=== PATIENT | male | born 1935 | race Caucasian/White ===

== ENCOUNTER 2017-06-29 22:14 | Inpatient (IN) | payer MEDICARE, BC ==
[2017-06-29 23:07] LABS: Bilirubin Negative (Negative); Blood, Urine Negative (Negative); Glucose, Urine (Dipstick) Negative (Negative); Ketone, Urine Negative (Negative); Nitrite Positive (Negative); Protein, Urine (Dipstick) 30 mg/dL (Neg-Trace)
[2017-06-29 23:10] LABS: Bacteria/HPF 4+ HPF (None Seen); Squamous Epithelial 0-3 HPF (0-3)
--- NOTE | 2017-06-29 23:12 | RAD ---
CHEST ONE VIEW 06/29/17 HISTORY: Emergency exam. COMPARISON: Chest one view 02/13/17. FINDINGS: The interstitial opacities seen on the prior examination have improved. Chronic scarring in the lung bases. No pneumothorax or effusion. Cardiac silhouette and mediastinal contours are within normal sotelo its given technique. IMPRESSION: No acute intrathoracic abnormality. POS: [facility]
[2017-06-29 23:13] LABS: #Lymphocytes 0.9 thou/uL (1.20-3.40); #Monocytes 0.3 thou/uL (0.11-0.59); #Neutrophils 7.4 thou/uL (1.40-6.50); %Basophils 0.3 % (0.0-1.0); %Eosinophils 0.2 % (0.0-10.0); %Lymphocytes 10.8 % (21.0-51.0); %Monocytes 3.5 % (0.0-10.0); Hematocrit 31.1 % (42.0-52.0); Mean Platelet Volume 6.6 fL (7.4-10.4); Red Blood Cell (RBC) Count 3.35 mill/uL (4.70-6.10); White Blood Cell (WBC) Count 8.7 thou/uL (4.8-10.8)
[2017-06-29 23:19] LABS: Lactic Acid - Sepsis 2.3 mmol/L (0.5-2.2)
[2017-06-29 23:24] LABS: ALT (SGPT) 8 U/L (8-55); AST (SGOT) 17 U/L (5-34); Alkaline Phosphatase 85 U/L (40-150); Anion Gap 15 mmol/L (10-20); BUN (Urea Nitrogen) 23 mg/dL (8.4-25.7); Bilirubin, Total 0.4 mg/dL (0.2-1.2); Calc. Creatinine Clearance 0 mL/min (70-130); Calcium 8.8 mg/dL (7.8-10.44); Carbon Dioxide 27 mmol/L (23-31); Chloride 99 mmol/L (98-107); Estimated GFR-MDRD 51; Globulin 4.5 g/dL (2.4-3.5); Protein, Total 7.5 g/dL (5.8-8.1)
[2017-06-29 23:24] LABS: Hyaline Casts/LPF 0-3 HYALINE CAST LPF (0-3 Hyaline)
[2017-06-30] MEDS ORDERED: Ondansetron HCl/PF 4 MG/2 ML Vial ONE (00:03)
[2017-06-30] MEDS ORDERED: Vancomycin HCl 1.5 GM in Sodium Chloride 0.9% 250 ML 300 ML IVPB SCH (01:30)
[2017-06-30] MEDS ORDERED: Gentamicin Sulfate 400 MG in Sodium Chloride 0.9% 100 ML IVPB SCH ×4 (01:30)
[2017-06-30] MEDS ORDERED: Dextrose 5 %-0.45 % NaCl 1,000 ML IV SCH (02:36)
[2017-06-30] MEDS ORDERED: Acetaminophen 325 MG TAB PO PRN ×2 (05:23→05:26)
--- NOTE | 2017-06-30 05:23 | PDOC.EVN ---
Event Note - Event Note Event Note: [id number] H&P Dictated 1. UTI 2. Altered mental status 3. HTN 4. DM type 2 plan: see orders
[2017-06-30] MEDS ORDERED: Dextrose 50% Abboject 50 ML SYRINGE SLOW IVP PRN (05:26)
[2017-06-30] MEDS ORDERED: HumaLOG 300 UNITS/3 ML VIAL SC PRN ×2 (05:26)
[2017-06-30] MEDS ORDERED: hydrALAZINE 20 MG/ML VIAL SLOW IVP PRN (05:26)
[2017-06-30] MEDS ORDERED: Dextrose 5% in Water 1,000 ML IV PRN (05:26)
[2017-06-30] MEDS ORDERED: Meropenem 1 GM in Sodium Chloride 0.9% 100 ML IVPB SCH (06:00)
[2017-06-30 06:04] LABS: #Eosinphils 0.1 thou/uL (0.0-0.7); #Lymphocytes 1.4 thou/uL (1.20-3.40); #Monocytes 0.5 thou/uL (0.11-0.59); #Neutrophils 8.9 thou/uL (1.40-6.50); %Basophils 0.3 % (0.0-1.0); %Eosinophils 0.5 % (0.0-10.0); %Lymphocytes 13.1 % (21.0-51.0); %Monocytes 4.6 % (0.0-10.0); Hematocrit 30.4 % (42.0-52.0); Mean Platelet Volume 6.3 fL (7.4-10.4); Red Blood Cell (RBC) Count 3.25 mill/uL (4.70-6.10); White Blood Cell (WBC) Count 10.9 thou/uL (4.8-10.8)
[2017-06-30 06:17] LABS: Anion Gap 14 mmol/L (10-20); BUN (Urea Nitrogen) 22 mg/dL (8.4-25.7); Calc. Creatinine Clearance 59 mL/min (70-130); Calcium 8.4 mg/dL (7.8-10.44); Carbon Dioxide 26 mmol/L (23-31); Estimated GFR-MDRD 65
[2017-06-30 06:20] LABS: Chloride 103 mmol/L (98-107)
[2017-06-30] MEDS: Sodium Chloride 0.9% 1,000 ML IV SCH ×2 (07:25→17:07)
[2017-06-30] MEDS: Ondansetron HCl/PF 4 MG/2 ML Vial IVP PRN (08:06)
--- NOTE | 2017-06-30 08:11 | HP ---
DATE OF ADMISSION: 06/30/2017 CHIEF COMPLAINT: Confusion. HISTORY OF PRESENT ILLNESS: The patient is an 82-year-old male with past medical history of hyperten mery, diabetes type 2, peripheral vascular disease, CVA, he lives at home, now brought to the ER camila use of confusion. History is obtained from the notes and from the ED physician. According to them, the patient pressed his Life Alert button so EMS was called. Upon EMS arrival, the patient was found to be confused, th e patient was brought to the ER. The patient was confused also. The patient denies any pain anywher e. Denies any chest pain, denies any nausea. Denies any vomiting. The patient does not know why he is in the hospital, but he said the EMS picked him up and dropped him here. The patient is currentl y under palliative care and the patient also has 2 fentanyl patches topically also. He denies any ch est pain, denies any palpitations. PAST MEDICAL HISTORY: As per HPI. PAST SURGICAL HISTORY: Left BKA. SOCIAL HISTORY: No smoking, no alcohol, no drugs per records. FAMILY HISTORY: None available from the patient due to his confusion. MEDICATIONS: Not available at this time except the patient has fentanyl patch. REVIEW OF SYSTEMS: From the patient, denies eye problems, hearing problems. He has no hearing loss. Denies any neck pain. CARDIOVASCULAR: Denies any chest pain. RESPIRATORY: Denies any cough, denies production. GASTROINTESTINAL: Denies any abdominal pain. MUSCULOSKELETAL: Positive for BKA. CRANIAL NERVE SYSTEM: Denies any weakness. PSYCHIATRIC: Positive for confusion. INTEGUMENTARY: Denies any rash. Positive for over the body. All other review of systems reviewed with the patient, but are negative. PHYSICAL EXAMINATION: VITAL SIGNS: At the time of H&P performed temperature 97.9, heart rate 90, respiration rate 18, puls e ox 94%, and blood pressure was 192/67. GENERAL: The patient appears tired. ENT: Nares patent. Poor dentition. NECK: Supple, no JVD. CARDIOVASCULAR: S1, S2 present. Regular rate and rhythm, no murmurs, no rubs, no gallops. RESPIRATORY SYSTEM: Diminished breath sounds. No wheezing, no rhonchi. Breath sounds bilaterally. ABDOMEN: Soft, nontender, no guarding, no organomegaly, no masses felt. MUSCULOSKELETAL: Left BKA. INTEGUMENTARY: Dry skin. Positive for erythematous rashes seen. PSYCHIATRIC: Mood appears normal. Awake, follows commands. Speech clear. MUSCULOSKELETAL: Positive for left BKA. LABORATORY DATA: At the time of H&P performed white count 8.7, hemoglobin 9.9, platelet count is 385 . BMP shows sodium 136, potassium 4.6, chloride 99, CO2 27, BUN of 23, creatinine 1.34. ASSESSMENT AND PLAN: The patient is an 82-year-old male. 1. Altered mental status, probably secondary to urinary tract infection. We will monitor closely. We will go ahead and do a CT head to evaluate any other etiology. We will follow the patient closely . 2. Urinary tract infection plan to start patient on IV antibiotics. Plan to send urine for culture and sensitivity. 3. History of hypertension. Monitor blood pressure. Continue pressure meds. 4. History of cerebrovascular accident. Continue aspirin. We will go ahead and consult Neurology t o evaluate the patient, also the mental status state. 5. History of diabetes type 2, monitor blood sugars. We will do insulin sliding scale. The case was discussed in detail with the patient.
[2017-06-30] MEDS: Heparin 5,000 UNITS/ML VIAL SC SCH ×3 (08:49→23:12)
--- NOTE | 2017-06-30 09:12 | PDOC.EVN ---
Event Note - Event Note Event Note: Pt seen and exmained, on round,s chart reviewed. Abx adjusted, labs ordered for tomorrow.
[2017-06-30] MEDS: fentaNYL 50 mcg/hour Patch TD SCH (10:11)
--- NOTE | 2017-06-30 10:24 | CT ---
PRELIMINARY REPORT/[facility]/EMERGENCY AFTER HOURS PROCEDURE: EXAM: CT Head Without Intravenous Contrast CLINICAL HISTORY: 82 years old, male; Signs and symptoms; Altered mental status/memory loss; Patient HX: Pt has been barbosa lucinating and is altered. TECHNIQUE: Axial computed tomography images of the head/brain without intravenous contrast. COMPARISON: No relevant prior studies available. FINDINGS: Brain: Moderate volume loss. Chronic left thalamic and bilateral internal capsular lacunar infarction s No hemorrhage. Moderate white matter disease. No edema. Ventricles: Unremarkable. No ventriculomegaly. Bones/joints: Unremarkable. No acute fracture. Soft tissues: Unremarkable. Sinuses: Mild polypoid mucosal thickening No acute sinusitis. Mastoid air cells: Unremarkable as visualized. No mastoid effusion. IMPRESSION: No intracranial hemorrhage.Please see discussion above. Thank you for allowing us to participate in the care of your patient. Dictated and Authenticated by: Travis Ramsay MD 06/30/2017 6:14 AM Central Time ([place] & [place]) FINAL REPORT NONCONTRAST HEAD CT: Date: 06/30/17 HISTORY: Hallucinations. COMPARISON: 05/11/16. TECHNIQUE: Noncontrast head CT is performed from skull base to skull vertex. FINDINGS: This report is in agreement with the preliminary report by Joanne. No acute intracranial hemorrhage. No acute intracranial process. Age-appropriate atrophy. Chronic small vessel ischemic changes are noted . Mucosal disease is identified. POS: [facility]
[2017-06-30] MEDS: Piperacillin/Tazobactam 3.375 GM in Sodium Chloride 0.9% 100 ML IVPB SCH ×3 (11:58→23:12)
--- NOTE | 2017-06-30 21:39 | CON ---
DATE OF CONSULTATION: 06/30/2017 CONSULTING PHYSICIAN: Hospitalist service. IMPRESSION: 1. Mild confusional state secondary to vascular dementia and secondary urinary tract infection. 2. Prior stroke with right hemiparesis. 3. Left below-knee amputation. 4. Diabetes. 5. Hypertension. PLAN: Continue current care. HISTORY OF PRESENT ILLNESS: Mr. Turner is an 82-year-old gentleman who was brought in with mental st atus changes. There is no one in the room to give me details as to his exact situation. He is witho ut any particular complaints this evening. He apparently had some hallucinations prior to admission. He reports that he lives in [place] and spends most of his time in a power chair. He does not have any complaint of headache, nausea, vomiting, or dizziness. PAST MEDICAL HISTORY: As listed above. ALLERGIES: None. SOCIAL HISTORY: No tobacco use reported. FAMILY HISTORY: Noncontributory. REVIEW OF SYSTEMS: Otherwise negative for complaints of abdominal pain, chest pain, shortness of sita ath. PHYSICAL EXAMINATION: GENERAL: He is a well-nourished elderly man sitting up in bed in no distress. VITAL SIGNS: Have been stable. He is afebrile. HEENT: Pupils equal and reactive. Conjunctivae clear. Oropharynx clear. NECK: No lymphadenopathy noted. EXTREMITIES: No cyanosis noted. There is a left BKA. NEUROLOGIC: He was alert and cooperative. He answers questions appropriately for the most part, oth er than he was not oriented to place and time. Speech is fluent and clear. Cranial nerve exam was i ntact other than some subtle right facial drooping. He has a spastic right upper extremity paresis. There is also weakness in the right lower extremity as well. There was no spontaneous movement note d. He could use the left hand appropriately. No abnormal movements were seen. CT scan of the brain was done showing evidence of chronic small vessel ischemic changes. Lab was all unremarkable other than the urinalysis consistent with a UTI. SUMMARY: This is an elderly gentleman who likely had some degree of delirium secondary to the infect ion superimposed on some vascular dementia. He seems to be doing well at this point. Agree with you r care.
[2017-07-01] MEDS: Sodium Chloride 0.9% 1,000 ML IV SCH ×2 (02:09→21:13)
[2017-07-01 05:02] LABS: #Eosinphils 0.2 thou/uL (0.0-0.7); #Lymphocytes 1.6 thou/uL (1.20-3.40); #Monocytes 0.7 thou/uL (0.11-0.59); #Neutrophils 6.4 thou/uL (1.40-6.50); %Basophils 0.5 % (0.0-1.0); %Lymphocytes 17.8 % (21.0-51.0); %Monocytes 7.4 % (0.0-10.0); Hematocrit 28.7 % (42.0-52.0); Mean Platelet Volume 6.5 fL (7.4-10.4); Red Blood Cell (RBC) Count 3.08 mill/uL (4.70-6.10); White Blood Cell (WBC) Count 8.9 thou/uL (4.8-10.8)
[2017-07-01 05:17] LABS: Anion Gap 8 mmol/L (10-20); BUN (Urea Nitrogen) 17 mg/dL (8.4-25.7); Calc. Creatinine Clearance 74 mL/min (70-130); Calcium 8.2 mg/dL (7.8-10.44); Carbon Dioxide 27 mmol/L (23-31); Chloride 106 mmol/L (98-107); Estimated GFR-MDRD 84
[2017-07-01] MEDS: Piperacillin/Tazobactam 3.375 GM in Sodium Chloride 0.9% 100 ML IVPB SCH ×3 (06:08→17:38)
[2017-07-01] MEDS: Heparin 5,000 UNITS/ML VIAL SC SCH ×3 (09:31→21:07)
[2017-07-01] MEDS: metroNIDAZOLE 250 MG TAB PO SCH ×3 (09:44→21:06)
[2017-07-01 12:29] LABS: Bilirubin Negative (Negative); Blood, Urine Large (Negative); Glucose, Urine (Dipstick) Negative (Negative); Ketone, Urine Trace mg/dL (Negative); Nitrite Positive (Negative); Protein, Urine (Dipstick) 100 mg/dL (Neg-Trace)
[2017-07-01 12:32] LABS: Bacteria/HPF Rare-Few HPF (None Seen); Squamous Epithelial 0-3 HPF (0-3)
[2017-07-01 12:39] LABS: Hyaline Casts/LPF NONE SEEN LPF (0-3 Hyaline); Yeast-All Forms None Seen HPF (None Seen)
[2017-07-01 12:40] LABS: RBC/HPF 21-50 HPF (0-3)
--- NOTE | 2017-07-01 13:21 | PRG ---
DATE OF SERVICE: 07/01/2017 SUBJECTIVE: The patient seen and examined at bedside. He is able to answer my simple questions. He knows that he is in the hospital. He knows the date and month. He does not know the year. His racquel etite is fair, he ate. OBJECTIVE: VITAL SIGNS: Blood pressure is 118/63, pulse is 86, temperature 97.8, O2 saturation is 97% on room a ir, respiratory rate is 18. HEENT: Head is atraumatic, normocephalic. Eyes: PERRLA. Sclerae nonicteric. NECK: Supple. LUNGS: Clear. HEART: S1, S2 normal, no S3, no S4. ABDOMEN: Soft, nontender. Bowel sounds are present. NEUROLOGIC: He has contracted right upper extremity. He is able to answer my questions properly mos t of the time. LABORATORY DATA: Showed a white count of 8.9, hemoglobin 9.1, hematocrit 28.7, platelet count is 366 . Chemistry within normal limits. Calcium 8.2. Glycemia ranging from 87-107. Microbiology, venous blood from the left arm culture is positive, 1 out of 2 for gram positive cocci. Then, skin from le g cycle cultures gram stains show gram negative rods in sacral area, pseudomonas aeruginosa in sacral area, preliminary report and leg shows gram-negative rods and gram-negative rods x2. IMPRESSION: 1. Altered mental status which significantly improved. The patient was seen by neurologist who felt that this was metabolic secondary to urinary tract infection on top of his some vascular dementia. He is significantly better today. 2. Urinary tract infection. Apparently, there was not any urine culture set up and the patient was receiving antibiotic for the last 2 days, so there is no point to reculture him. At this time, I federico l just do urinalysis to see whether his antibiotics are working. He is on Zosyn and ciprofloxacin an d metronidazole. 3. History of hypertension. We will continue pressure meds. We will restart his clopidogrel and al l other home medications except for Keflex. 4. History of cerebrovascular accident with right-sided paresis. We will continue aspirin and Plavi x. 5. Sacral decubitus, unstageable. We will have General Surgery to evaluate the patient and see whet her he needs debridement at this point. 6. History of diabetes mellitus, well-controlled. PLAN: Continue his sequential compression devices prophylaxis.
--- NOTE | 2017-07-01 16:33 | CON ---
DATE OF CONSULTATION: 07/01/[address] Danny Guerrero, [facility] Hospitalist. REASON FOR CONSULTATION: Sacral decubitus wound. HISTORY OF PRESENT ILLNESS: This is an 82-year-old male with a history of confusion and immobility, who presents after being brought to the emergency room with increased confusion. The patient has a h istory of hypertension, type 2 diabetes, peripheral vascular disease, previous CVA. Palliative care seeing the patient long-term, has been found to have a sacral decubitus wound. The patient states th at he is bedbound, not able to walk much that has been worse lately. I have been asked to see this w ound to determine whether it needs any surgical debridement. PAST MEDICAL HISTORY: As above. PAST SURGICAL HISTORY: Left BKA. MEDICINES TAKEN DAILY: See list. ALLERGIES: No known drug allergies. SOCIAL HISTORY: No smoking, alcohol or other drugs. REVIEW OF SYSTEMS: Ten system review of systems is otherwise negative. PHYSICAL EXAMINATION: VITAL SIGNS: Blood pressure 155/70, pulse 96, respirations 15. He is afebrile. CHEST: Clear. HEART: Regular rate and rhythm. ABDOMEN: Soft, nontender. EXTREMITIES: Examination of his low back reveals excoriated skin to the gluteal cleft in the bilater al buttocks. He does have some necrotic tissue present and a sacral decubitus wound, appears fairly superficial. Wound Care has placed a dressing on it with what appears to be enzymatic debrider. The re is no obvious purulence. There is no bulla formation. ASSESSMENT: Chronic deconditioning, secondary to chronic medical illness and cerebrovascular acciden t, now with sacral decubitus wound secondary to this bedbound state. PLAN: I recommend aggressive wound care, enzymatic products during dressing changes plus or minus Me dihoney. Unfortunately, this sacral decubitus wound will not heal unless the patient is able to be m ore active and mobile. No surgical debridement needed at this time. Please reconsult if the wound i s worsening.
[2017-07-01] MEDS: Cipro 250 MG TAB PO SCH (20:59)
[2017-07-01] MEDS: Atorvastatin Calcium 20 MG TAB PO SCH (21:06)
[2017-07-01] MEDS: Carvedilol 3.125 MG TAB PO SCH (21:06)
[2017-07-02] MEDS: Piperacillin/Tazobactam 3.375 GM in Sodium Chloride 0.9% 100 ML IVPB SCH ×5 (00:27→23:22)
[2017-07-02] MEDS: Cipro 250 MG TAB PO SCH ×2 (06:03→20:02)
[2017-07-02] MEDS: Spironolactone 25 MG TAB PO SCH (08:44)
[2017-07-02] MEDS: Carvedilol 3.125 MG TAB PO SCH ×2 (08:46→20:02)
[2017-07-02] MEDS: Lisinopril 5 MG TAB PO SCH (08:47)
[2017-07-02] MEDS: Furosemide 40 MG TAB PO SCH (08:47)
[2017-07-02] MEDS: Multivitamin W/ Minerals 1 TAB PO SCH (08:47)
[2017-07-02] MEDS: Clopidogrel Bisulfate 75 MG TAB PO SCH (08:47)
[2017-07-02] MEDS: Heparin 5,000 UNITS/ML VIAL SC SCH ×3 (08:47→20:03)
[2017-07-02] MEDS: Sodium Chloride 0.9% 1,000 ML IV SCH (08:57)
--- NOTE | 2017-07-02 14:48 | PRG ---
DATE OF SERVICE: 07/02/2017 SUBJECTIVE: The patient is seen and examined at the bedside. He is quite upset because the breakfas t he was served does not look good to him and it looks like dinner more than breakfast. He is quite irritated because of that. There was not any unexpected events overnight. OBJECTIVE: VITAL SIGNS: Blood pressure is 137/64, pulse is 68, temperature is 98.0, respiratory rate is 12 and O2 saturation is 92% on room air. His urine output was 1050 and intake was 2458, so balance was 1408 . His weight is 176 pounds. He has multiple ecchymotic areas on his forearms. HEENT: His eyes are responding to light properly. Pupils are reactive properly. Sclerae is nonicte roby. Conjunctivae pinkish. Oral mucosa is moist. NECK: Supple. No lymphadenopathy. LUNGS: Clear. HEART: S1 and S2 normal. No S3, no S4, no murmur. ABDOMEN: Soft and nontender. Bowel sounds are present. No organomegaly. EXTREMITIES: No clubbing, cyanosis or edema. NEUROLOGIC: He is not aware of the place where he is at, but once he is told he recognizes and he kn ows the time and month. His mentation has significantly improved since the time of admission. He is able to move all extremities, although his right side is contracted. LABORATORY DATA: Showed glycemia is ranging from 109-119. Microbiology showed urine Yanez gram-nega tive rods. Sacral decubitus swab sample was growing Proteus mirabilis, Enterococcus species and Pseu domonas aeruginosa felt multi-bacterial infection. Blood culture 1 out of 2 showed presumptive micro coccus species, which is probably a contaminator. IMPRESSION AND PLAN: 1. Altered mental status significantly improved. It is felt that he has some vascular dementia, whi ch was worse with his urinary tract infection. 2. Urinary tract infection. Urine culture is growing gram-negative rods. The patient is on Zosyn, ciprofloxacin and metronidazole. We are going to trim this regimen. 3. History of hypertension. 4. History of cerebrovascular accident with right-sided paresis, on aspirin and Plavix. 5. Sacral decubitus, unstageable because of the eschar, which is on the top of the decubitus. The dominique huff was seen by general surgeon, Dr. Jensen who recommends aggressive enzyme therapy by Wound Car e and no surgical debridement at this point. We will start him on zinc and vitamin C. He has a spec ial mattress with air. We will need to have senior care facility placement after he is discharge d from the hospital to continue care for his decubitus. 6. History of diabetes mellitus, well-controlled. We will obtain a dietitian consult and will follo w recommendation. We will continue his sequential compression devices for deep venous thrombosis pro phylaxis and heparin 5000 units subcutaneously 3 times a day. We will continue his Duragesic patch. We will try to get hold of his family and get more information about this man. At this point, I am going to trim his antibiotic regimen and keep him on less antibiotics and I am going to put him on pr obiotics too.
[2017-07-02] MEDS: Atorvastatin Calcium 20 MG TAB PO SCH (20:02)
[2017-07-02] MEDS: Ondansetron HCl/PF 4 MG/2 ML Vial IVP PRN (23:22)
[2017-07-03] MEDS: Piperacillin/Tazobactam 3.375 GM in Sodium Chloride 0.9% 100 ML IVPB SCH ×3 (06:01→17:34)
[2017-07-03] MEDS: Cipro 250 MG TAB PO SCH (06:01)
[2017-07-03 07:57] LABS: #Eosinphils 0.3 thou/uL (0.0-0.7); #Lymphocytes 1.6 thou/uL (1.20-3.40); #Monocytes 0.5 thou/uL (0.11-0.59); #Neutrophils 3.5 thou/uL (1.40-6.50); %Basophils 0.1 % (0.0-1.0); %Eosinophils 4.3 % (0.0-10.0); %Lymphocytes 27.8 % (21.0-51.0); %Monocytes 7.6 % (0.0-10.0); Hematocrit 29.7 % (42.0-52.0); Mean Platelet Volume 6.3 fL (7.4-10.4); Red Blood Cell (RBC) Count 3.19 mill/uL (4.70-6.10); White Blood Cell (WBC) Count 5.8 thou/uL (4.8-10.8)
[2017-07-03] MEDS: Furosemide 40 MG TAB PO SCH (08:20)
[2017-07-03] MEDS: Lisinopril 5 MG TAB PO SCH (08:20)
[2017-07-03 08:21] LABS: Anion Gap 10 mmol/L (10-20); BUN (Urea Nitrogen) 8 mg/dL (8.4-25.7); Calc. Creatinine Clearance 90 mL/min (70-130); Carbon Dioxide 26 mmol/L (23-31); Chloride 104 mmol/L (98-107); Estimated GFR-MDRD Greater than 90
[2017-07-03] MEDS: Clopidogrel Bisulfate 75 MG TAB PO SCH (08:22)
[2017-07-03] MEDS: Heparin 5,000 UNITS/ML VIAL SC SCH ×3 (08:22→22:33)
[2017-07-03] MEDS: Ascorbic Acid 500 mg Chewable Tablet PO SCH (08:22)
[2017-07-03] MEDS: Multivitamin W/ Minerals 1 TAB PO SCH (08:22)
[2017-07-03] MEDS: Zinc Sulfate 220 MG CAP PO SCH (08:23)
[2017-07-03] MEDS: Spironolactone 25 MG TAB PO SCH (08:23)
[2017-07-03] MEDS: Carvedilol 3.125 MG TAB PO SCH (08:24)
[2017-07-03] MEDS: fentaNYL 50 mcg/hour Patch TD SCH (09:55)
[2017-07-03] MEDS ORDERED: Carvedilol 6.25 MG TAB PO SCH (10:05)
--- NOTE | 2017-07-03 10:29 | PRG ---
DATE OF SERVICE: 07/03/2017 SUBJECTIVE: The patient is seen and examined at the bedside. He is grouchy like he was yesterday, b ut he is able to converse with me. He knows that he lives in [place]. OBJECTIVE: VITAL SIGNS: Blood pressure is 156/73, pulse is 64, temperature is 98.5, respiratory rate is 19, and O2 saturation is 98% on room air. HEENT: His head is atraumatic, normocephalic. Oral mucosa moist. NECK: Supple. LUNGS: Clear. HEART: S1, S2 normal. ABDOMEN: Soft, nontender. EXTREMITIES: Left below the knee amputee. NEUROLOGIC: He is not as alert and oriented as he was yesterday and that is probably the fluctuation of his dementia. MICROBIOLOGY: Urine culture is growing some gram negative rods, but it is only in 10,000-20,000 colo nies and previous blood cultures suggestive of some coagulase negative Staphylococcus, along with pre sumptive micrococcus. He has Proteus, Enterococcus, and Pseudomonas on his sacrum decubitus skin cul ture. IMPRESSION: 1. Infected sacral decubitus. Not for surgical debridement. General Surgery recommended aggressive wound care with enzymes of pressure. The patient was started on vitamin C and zinc. He will need a [facility] facility placement to treat this and finalize the treatment. He is getting Zosyn fo r several different organisms growing on the skin of the sacral decubitus area that is Proteus mirabi lis, Enterococcus and Pseudomonas, so it is multifactorial. We would stop Cipro, we will continue Zo syn. 2. Altered mental status, felt to be related to urinary tract infection and baseline vascular eric ia. 3. Urinary tract infection, still on Zosyn which covers for urinary tract infection and sacral decub itus infection. 4. History of hypertension. His systolic is fluctuating from 130s to 150s. I am going to go up on his carvedilol from 3.125 to 6.25 mg twice a day. 5. History of cerebrovascular accident with right-sided paresis on aspirin and Plavix. 6. Left below the knee amputee. PLAN: Finalize arrangement for his [facility] unit transfer for wound care and decubitus ulcer treatment. We would continue on current regimen until he is discharged. I would pro bably stop his IV antibiotics as soon as he is transferred to skilled and concentrate on his local re gimen.
[2017-07-03] MEDS ORDERED: Carvedilol 3.125 MG TAB PO SCH (10:30)
[2017-07-03] MEDS: Carvedilol 6.25 MG TAB PO SCH (22:32)
[2017-07-03] MEDS: Atorvastatin Calcium 20 MG TAB PO SCH (22:33)
[2017-07-04] MEDS: Piperacillin/Tazobactam 3.375 GM in Sodium Chloride 0.9% 100 ML IVPB SCH ×5 (00:07→23:37)
[2017-07-04] MEDS: Multivitamin W/ Minerals 1 TAB PO SCH (10:01)
[2017-07-04] MEDS: Carvedilol 6.25 MG TAB PO SCH ×2 (10:01→21:02)
[2017-07-04] MEDS: Spironolactone 25 MG TAB PO SCH (10:01)
[2017-07-04] MEDS: Zinc Sulfate 220 MG CAP PO SCH (10:01)
[2017-07-04] MEDS: Lisinopril 5 MG TAB PO SCH (10:02)
[2017-07-04] MEDS: Furosemide 40 MG TAB PO SCH (10:02)
[2017-07-04] MEDS: Clopidogrel Bisulfate 75 MG TAB PO SCH (10:02)
[2017-07-04] MEDS: Ascorbic Acid 500 mg Chewable Tablet PO SCH (10:03)
[2017-07-04] MEDS: Heparin 5,000 UNITS/ML VIAL SC SCH ×3 (10:03→21:03)
--- NOTE | 2017-07-04 13:51 | PQF ---
CLINICAL DOCUMENTATION IMPROVEMENT CLARIFICATION FORM: ICD-10 Updated PLEASE DO AN ADDENDUM TO THE PROGRESS NOTE WITH ANY DOCUMENTATION UPDATES OR ADDITIONS AND CARRY THROUGH TO DC SUMMARY. THANK YOU. DATE: 07/04/17 ATTN: Dr. Briggs Please exercise your independent, professional judgment in responding to the clarification form. Clinical indicators are provided on the bottom of this form for your review Please check appropriate box(s): [ x ] Encephalopathy: Type: [ x] Acute [ ] Subacute [ ] Chronic Etiology: [ ] Hypertensive [ x ] Metabolic [ ] Toxic [ ] Septic [ ] Unspecified [ ] in the setting of underlying dementia [ ] Other (please specify) [ ] Other diagnosis [ ] Unable to determine In addition, please specify: Present on Admission (POA): [ x ] Yes [ ] No [ ] Unable to determine For continuity of documentation, please document condition throughout progress notes and discharge summary. Thank You. CLINICAL INDICATORS - SIGNS / SYMPTOMS / LABS H&P: ALTERED MENTAL STATUS , PROBABLY SECONDARY TO UTI. NEUROLOGY CONSULT: ELDERLY GENTLEMAN WHO LIKELY HAD SOME DEGREE OF DELIRIUM 2/2 THE INFECTION SUPERIMPOSED ON SOME VASCULAR DEMENTIA. PN /: ALTERED MENTAL STATUS SIGNIFICANTLY IMPROVED. IT IS FELT THAT HE HAS SOME VASCULAR DEMENTIA, WHICH WAS WORSE WITH HIS UTI. RISKS: H&P: HX HTN, DM 2, PVD, CVA. UTI. GI CONSULT: SACRAL DECUBITUS WOUND SECONDARY TO BEDBOUND STATE. TREATMENT: CPOE 06/30: ZOSYN 3.375 GM IV Q6 HR Thank you, Bere (This form is maintained as a part of the permanent medical record) 2015 [employer] All Rights Reserved Bere Calderno RN, BSN [email or web address] Office: [phone] [facility]
--- NOTE | 2017-07-04 15:54 | PDOC.PN ---
- Subjective Encounter Start Date: 07/04/17 Encounter Start Time: 15:30 Subjective: f/u for AMS/encephalopathy likely multifactorial given overall condition, -: decubitus ulcers, dementia and UTI with Pseudomonas spp. Receiving Zosyn -: currently and local care. Apparently revoked Hospice for admit. - Objective MAR Reviewed: Yes Vital Signs & Weight: Vital Signs (12 hours) Temp Pulse Resp BP BP Pulse Ox 07/04/17 11:00 98.1 F 65 16 157/73 H 98 07/04/17 10:02 62 07/04/17 10:01 178/75 H 07/04/17 07:29 97.5 F L 62 16 149/69 H 100 07/04/17 04:00 97.7 F 68 18 119/72 100 Weight Weight 180 lb 1.6 oz I&O: 07/03/17 07/04/17 07/05/17 06:59 06:59 06:59 Intake Total 2073 570 Output Total 1650 750 Balance 423 -180 Result Diagrams: 07/03/17 07:39 07/03/17 07:39 Additional Labs: Accuchecks 07/04/17 07/04/17 07/03/17 11:51 05:58 22:38 POC Glucose 155 H 89 116 H 07/03/17 16:54 POC Glucose 101 Microbiology 07/01/17 12:11 Urine colmenares catheter Urine Culture - Final Pseudomonas aeruginosa 06/30/17 00:31 Sacral - Pending Bacterial Culture - Final Pseudomonas aeruginosa 06/30/17 00:31 Sacral - Pending Bacterial Culture - Final Proteus mirabilis Pseudomonas aeruginosa Enterococcus species 06/30/17 00:31 Leg - Pending Bacterial Culture - Final Pseudomonas aeruginosa Proteus mirabilis 06/29/17 23:00 Venous blood - Left Arm Blood Culture - Final Presumptive Micrococcus sp. 06/29/17 23:00 Nasal swab Influenza Types A,B Direct EIA - Final 06/29/17 22:58 Venous blood - Right Hand Blood Culture - Final Coagulase Neg Staphylococcus Laboratory Tests 06/29/17 06/30/17 07/01/17 22:58 05:43 04:34 Hgb 9.9 L 9.5 L 9.1 L Radiology Reviewed by me: Yes (CT brain - no acute process) Phys Exam - Physical Examination Constitutional: NAD HEENT: PERRLA, oral pharynx no lesions Neck: no JVD, supple Respiratory: no wheezing, clear to auscultation bilateral Cardiovascular: RRR Gastrointestinal: soft, non-tender, no distention, positive bowel sounds Musculoskeletal: no edema, pulses present Hemiparesis Psychiatric: A&O x 3 Skin: normal turgor, cap refill <2 seconds Dx/Plan (1) Acute metabolic encephalopathy Code(s): G93.41 - METABOLIC ENCEPHALOPATHY Status: Acute Comment: Likely multifactorial, treat underlying UTI, supportive mgmt (2) Pseudomonas urinary tract infection Code(s): N39.0 - URINARY TRACT INFECTION, SITE NOT SPECIFIED; B96.5 - PSEUDOMONAS (MALLEI) CAUSING DISEASES CLASSD ELSWHR Status: Acute Comment: Add Levaquin 500mg IV daily (3) Decubitus ulcer Code(s): L89.90 - PRESSURE ULCER OF UNSPECIFIED SITE, UNSPECIFIED STAGE Status : Chronic Comment: Chronic with polymicrobial organisms, continue Zosyn another 24h then consider de-escalating, local wound care (4) H/O: CVA (cerebrovascular accident) Code(s): Z86.73 - PRSNL HX OF TIA (TIA), AND CEREB INFRC W/O RESID DEFICITS Status: Chronic Comment: with right hemiparesis, chronic, PT eval (5) HTN (hypertension) Code(s): I10 - ESSENTIAL (PRIMARY) HYPERTENSION Status: Chronic Qualifiers: Hypertension type: essential hypertension Qualified Code(s): I10 - Essential (primary) hypertension Comment: Resume home BP regimen (6) History of left below knee amputation Code(s): Z89.512 - ACQUIRED ABSENCE OF LEFT LEG BELOW KNEE Status: Chronic Comment: PT for functional assessment - Plan continue antibiotics, PT/OT, public health social worker Stable overall -: Add Levaquin 500mg IV daily -: Continue Zosyn another 24h -: WCT for local care of sacral decubitus -: CM for disposition plannning, ? HH vs SNF * .
[2017-07-04] MEDS: Atorvastatin Calcium 20 MG TAB PO SCH (21:02)
[2017-07-05] MEDS: Piperacillin/Tazobactam 3.375 GM in Sodium Chloride 0.9% 100 ML IVPB SCH ×4 (06:24→23:41)
[2017-07-05] MEDS: Ascorbic Acid 500 mg Chewable Tablet PO SCH (10:24)
[2017-07-05] MEDS: Spironolactone 25 MG TAB PO SCH (10:24)
[2017-07-05] MEDS: Zinc Sulfate 220 MG CAP PO SCH (10:24)
[2017-07-05] MEDS: Furosemide 40 MG TAB PO SCH (10:24)
[2017-07-05] MEDS: Carvedilol 6.25 MG TAB PO SCH ×2 (10:24→21:30)
[2017-07-05] MEDS: Multivitamin W/ Minerals 1 TAB PO SCH (10:24)
[2017-07-05] MEDS: Clopidogrel Bisulfate 75 MG TAB PO SCH (10:24)
[2017-07-05] MEDS: Lisinopril 5 MG TAB PO SCH (10:25)
[2017-07-05] MEDS: Heparin 5,000 UNITS/ML VIAL SC SCH ×3 (10:25→21:30)
[2017-07-05 13:31] VITALS: BMI 29.0
--- NOTE | 2017-07-05 18:05 | PDOC.PN ---
- Subjective Encounter Start Date: 07/05/17 Encounter Start Time: 18:00 Subjective: f/u AMS due to likely metabolic and infectious process. Feels better -: overall with normal mental functioning. Receiving local care for sacral -: and R toe decubitus wounds. - Objective MAR Reviewed: Yes Vital Signs & Weight: Vital Signs (12 hours) Temp Pulse Resp BP BP Pulse Ox 07/05/17 16:09 97.5 F L 78 14 180/69 H 97 07/05/17 12:00 97.9 F 69 18 150/76 H 99 07/05/17 10:25 61 07/05/17 10:24 132/65 07/05/17 08:00 97.9 F 69 18 148/68 H 100 Weight Admit Weight 177 lb Weight 180 lb 1.6 oz I&O: 07/04/17 07/05/17 07/06/17 06:59 06:59 06:59 Intake Total 570 1280 480 Output Total 750 1450 Balance -180 -170 480 Result Diagrams: 07/03/17 07:39 07/03/17 07:39 Additional Labs: Accuchecks 07/05/17 07/05/17 07/05/17 15:54 11:06 05:40 POC Glucose 134 H 142 H 113 H 07/04/17 20:07 POC Glucose 131 H Phys Exam - Physical Examination Constitutional: NAD alert, responsive HEENT: PERRLA, oral pharynx no lesions Neck: no JVD, supple diminished in bases Respiratory: no wheezing Cardiovascular: RRR Gastrointestinal: soft, non-tender, no distention, positive bowel sounds contractures of RUE Musculoskeletal: pulses present R hemiparesis Psychiatric: A&O x 3 Skin: normal turgor, cap refill <2 seconds Dx/Plan (1) Acute metabolic encephalopathy Code(s): G93.41 - METABOLIC ENCEPHALOPATHY Status: Acute Comment: Likely multifactorial, treat underlying UTI, supportive mgmt, resolving (2) Pseudomonas urinary tract infection Code(s): N39.0 - URINARY TRACT INFECTION, SITE NOT SPECIFIED; B96.5 - PSEUDOMONAS (MALLEI) CAUSING DISEASES CLASSD ELSWHR Status: Acute Comment: Change Levaquin 500mg po daily, plan for continuation on d/c (3) Decubitus ulcer Code(s): L89.90 - PRESSURE ULCER OF UNSPECIFIED SITE, UNSPECIFIED STAGE Status : Chronic Comment: Chronic with polymicrobial organisms, continue Zosyn another 24h then consider de-escalating, local wound care, all wounds present prior to admission (4) H/O: CVA (cerebrovascular accident) Code(s): Z86.73 - PRSNL HX OF TIA (TIA), AND CEREB INFRC W/O RESID DEFICITS Status: Chronic Comment: with right hemiparesis, chronic, PT eval (5) HTN (hypertension) Code(s): I10 - ESSENTIAL (PRIMARY) HYPERTENSION Status: Chronic Qualifiers: Hypertension type: essential hypertension Qualified Code(s): I10 - Essential (primary) hypertension Comment: Resume home BP regimen (6) History of left below knee amputation Code(s): Z89.512 - ACQUIRED ABSENCE OF LEFT LEG BELOW KNEE Status: Chronic Comment: PT for functional assessment - Plan continue antibiotics, clinical social work aide Stable overall -: Change Levaquin 500mg po daily -: D/C Zosyn in am -: Will resume hospice on d/c -: Home in am * .
[2017-07-05] MEDS: Atorvastatin Calcium 20 MG TAB PO SCH (21:30)
[2017-07-06] MEDS: Piperacillin/Tazobactam 3.375 GM in Sodium Chloride 0.9% 100 ML IVPB SCH ×2 (05:29→11:43)
[2017-07-06] MEDS: Ascorbic Acid 500 mg Chewable Tablet PO SCH (10:29)
[2017-07-06] MEDS: Carvedilol 6.25 MG TAB PO SCH (10:29)
[2017-07-06] MEDS: Lisinopril 5 MG TAB PO SCH (10:30)
[2017-07-06] MEDS: Multivitamin W/ Minerals 1 TAB PO SCH (10:30)
[2017-07-06] MEDS: Clopidogrel Bisulfate 75 MG TAB PO SCH (10:30)
[2017-07-06] MEDS: Zinc Sulfate 220 MG CAP PO SCH (10:30)
[2017-07-06] MEDS: Spironolactone 25 MG TAB PO SCH (10:30)
[2017-07-06] MEDS: Furosemide 40 MG TAB PO SCH (10:30)
[2017-07-06] MEDS: Heparin 5,000 UNITS/ML VIAL SC SCH (10:30)
[2017-07-06] MEDS: fentaNYL 50 mcg/hour Patch TD SCH (11:39)
[2017-07-06 12:39] VITALS: BP 152/79; TEMP 97.9
--- NOTE | 2017-07-06 14:14 | DIS ---
DATE OF ADMISSION: 07/01/2017 DATE OF DISCHARGE: 07/06/2017 DISCHARGE DIAGNOSES: 1. Acute metabolic encephalopathy, multifactorial, resolving. 2. Pseudomonas urinary tract infection with Pseudomonas species, improved. 3. Sacrococcygeal decubitus ulceration prior to admission. 4. Polymicrobial infection. 5. History of cerebrovascular accident with residual right hemiparesis, nonambulatory status. 6. Hypertension, stable. 7. Status post left [id number] amputation, stable. CONSULTATIONS: Dr. Kim with Neurology Service. Dr. Jensen with General Surgery Service. PERTINENT LABORATORY DATA AND X-RAY FINDINGS: Creatinine ranged between 0.74-1.34 with estimated GFR ranging between 51-90. Lactic acid level ranged between 1.7-2.3. LFTs within normal limits. Album in 3.0. CBC showed white blood cell count ranging between 8.7-10.9, hemoglobin ranged between 9.1-9. 9. Blood culture x2 dated 06/29/2017 showed presumptive micrococcus, likely skin contaminant. Influ jermain A and B antigen on 06/29/2017 showed negative findings. Legs, sacral and urine culture on 06/30 and 07/01/2017 respectively showed Pseudomonas species and Proteus mirabilis. Sacral wound on 06/30/2017 showing Enterococcus species as well as Proteus mirabilis and Pseudomonas aeruginosa. Por table chest x-ray dated 06/29/2017 showed no acute cardiopulmonary process. CT of the brain without contrast dated 06/30/2017 showed no acute intracranial process. Moderate volume loss. 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 HOSPITAL COURSE: Patient was initially admitted to the medical floor after presenting with increasin g confusion. The patient underwent extensive evaluation including metabolic screening with physical exam revealing large sacral coccygeal decubitus ulceration, deconditioning and likely metabolic influ ence of urinary tract infection in conjunction with decubitus ulcerations. The patient was placed on broad spectrum antibiotic coverage with wound culture showing Pseudomonas and Proteus species. The patient was also treated for urinary tract infection with Pseudomonas species with Zosyn throughout t he hospital course. The patient was given general supportive measures including IV fluids and local wound care after surgery evaluation did not recommend any aggressive surgical intervention due to pat ient's nonambulatory status. The patient received local wound care throughout the hospital course wi th dressing changes and turning protocol. The patient rapidly clinically improved with supportive me asures, IV fluids and antibiotic therapy, stabilizing by the time of discharge. Overall patient clin ically stable and back to baseline functional status with stable vital signs at the time of discharge . The patient overall ready for discharge on 07/06/2017. DISCHARGE MEDICATIONS: 1. Levaquin 500 mg 1 tab p.o. daily x7 days. 2. Enteric coated aspirin 81 mg 1 tab p.o. daily. 3. Plavix 75 mg 1 tab p.o. daily. 4. Coreg 3.125 mg p.o. b.i.d. 5. Lasix 40 mg 1 tab p.o. daily. 6. Lisinopril 2.5 mg 1 tab p.o. daily. 7. Multivitamin 1 tab p.o. daily. 8. Zocor 40 mg p.o. at bedtime. 9. Aldactone 12.5 mg p.o. daily. FOLLOWUP: The patient will follow up with Dr. Khanh Clancy within 7 days of discharge. SPECIAL INSTRUCTIONS: The patient received local wound care per Wound Care instructions on discharge . The patient will also continue [facility] with hospice on discharge. CONDITION ON DISCHARGE: Fair. ACTIVITY: Bedbound status. DIET: Regular as tolerated. CODE STATUS: DO NOT RESUSCITATE. DISPOSITION: Home with [facility] and hospice services, 07/06/2017. Total time preparing and coordinating discharge is 35 minutes.
== END 2017-07-06 16:20 | disposition hospice, home (50) | DRG 689 ==
LOC: ERS 22:14 → 2NO 06-30 00:22 → OBSVTOIN 07-01 12:32 → SURG B 07-03 13:30
PROVIDERS: ADMIT Internal Medicine; ATTEND Internal Medicine
DX: N39.0 Urinary tract infection, site not specified (principal); G93.41 Metabolic encephalopathy; L89.150 Pressure ulcer of sacral region, unstageable; I11.0 Hypertensive heart disease with heart failure; E11.51 Type 2 diabetes mellitus with diabetic peripheral angiopathy without gangrene; I50.9 Heart failure, unspecified; I69.951 Hemiplegia and hemiparesis following unspecified cerebrovascular disease affecting right dominant side; Z85.828 Personal history of other malignant neoplasm of skin; F01.50 Vascular dementia, unspecified severity, without behavioral disturbance, psychotic disturbance, mood disturbance, and anxiety; B96.5 Pseudomonas (aeruginosa) (mallei) (pseudomallei) as the cause of diseases classified elsewhere; L08.89 Other specified local infections of the skin and subcutaneous tissue; B95.7 Other staphylococcus as the cause of diseases classified elsewhere; B95.2 Enterococcus as the cause of diseases classified elsewhere; Z89.512 Acquired absence of left leg below knee; B96.4 Proteus (mirabilis) (morganii) as the cause of diseases classified elsewhere; Z79.01 Long term (current) use of anticoagulants; Z79.82 Long term (current) use of aspirin; Z66 Do not resuscitate; Z74.01 Bed confinement status; Z51.5 Encounter for palliative care
CPT/HCPCS: 36415; 36416; 70450; 71010; 80048; 80053; 81001; 81003; 81015; 83605; 85025; 87040; 87070; 87077; 87086; 87149; 87186; 87205; 93005; 96361; 96374; 96375; A4216; G8978-GP-CM; G8979-GP-CM; G8980-GP-CM; G8987-GO-CM; G8988-GO-CM; G8989-GO-CM; G8996-GN-CK; G8997-GN-CJ; G8998-GN-CK; J0360; J0696; J1580; J1644; J1956; J2185; J2405; J2543; J3370; J7050